=== PATIENT | female | born 1960 | race American Indian/Alaskan Native ===

== ENCOUNTER 2018-01-17 07:13 | Outpatient (CLI) | payer OTHER ==
--- NOTE | 2018-01-17 08:12 | Mammography Report ---
Bilateral mammogram: No previous studies are available. CAD study utilized. Findings: Scattered lingular parenchyma bilaterally. Cluster of calcifications upper outer left breast. Focal density lower outer left breast. Focal asymmetry in posterior right breast seen only on CC view. Benign axillary nodes. Impression: Comparison the previous studies is recommended. If previous studies are not available spot compression for calcification left breast ,pot compression and sonographic examination for density right and left breast. BI-RADS CATEGORY: 0 = Needs additional imaging evaluation ACR BI-RADS MAMMOGRAPHIC CODES: 0 = Needs additional imaging evaluation; 1 = Negative; 2 = Benign; 3 = Probably benign; 4 = Suspicious; 5 = Malignant; 6 = Known biopsy-proven malignancy COMMENT: 1. Dense breast tissue, i.e., adenosis, fibrocystic changes, etc., may obscure an underlying neoplasm. 2. Approximately 10% of cancers are not detected with mammography. 3. A negative mammography report should not delay biopsy if a clinically suspicious mass is present. COMMENT: Patient follow-up letters are generated in [facility]
== END 2018-01-17 07:14 | disposition home or self-care (01) ==
LOC: MAMMO 07:13
DX: Z12.31 Encounter for screening mammogram for malignant neoplasm of breast (principal); I10 Essential (primary) hypertension; K21.9 Gastro-esophageal reflux disease without esophagitis; M17.0 Bilateral primary osteoarthritis of knee
CPT/HCPCS: 77067

== ENCOUNTER 2019-08-13 10:08 | Outpatient (CLI) | payer OTHER ==
--- NOTE | 2019-08-14 09:09 | Mammography Report ---
DIGITAL SCREENING MAMMOGRAM WITH CAD, 08/13/2019 INDICATION: Routine screening mammography. TECHNIQUE: Digital bilateral 2D mammography was obtained in the craniocaudal and mediolateral obliq ue projections. This examination was interpreted with the benefit of Computer-Aided Detection analysi s. COMPARISON: 01/17/2018 FINDINGS: Breast Density: The breasts are heterogeneously dense, which may obscure small masses. There is no evidence of dominant mass, suspicious calcifications or architectural distortion in eithe r breast. IMPRESSION: No mammographic evidence of malignancy. Follow up recommendation: Routine yearly BI-RADS Category 2: Benign. A "normal" or negative report should not discourage follow up or biopsy of a clinically significant f inding. A written summary of these findings will be mailed to the patient. The patient will be entered into a mammography reporting system which will generate a reminder letter for the patient's next appointmen t at the appropriate interval. The [employer] recommends yearly mammograms starting at age 40 and continuing as l ольга as a woman is in good health. Breast MRI is recommended for women with an approximate 20-25% or greater lifetime risk of breast cancer, including women with a strong family history of breast or ova wilfredo cancer or who have been treated for Hodgkin's disease. Signer Name: Florencio Pickett MD Signed: 08/14/2019 9:04 AM Workstation Name: [id number]
== END 2019-08-13 10:09 | disposition home or self-care (01) ==
LOC: MAMMO 10:08
PROVIDERS: ATTEND Internal Medicine
DX: Z12.31 Encounter for screening mammogram for malignant neoplasm of breast (principal)
CPT/HCPCS: 77067